=== PATIENT | male | born 1960 | race Caucasian/White ===

== ENCOUNTER → 2016-07-10 | Outpatient (CLI) | payer BC | LOC: KOH-I 15:34 | DX: J45.901 Unspecified asthma with (acute) exacerbation (principal) | CPT/HCPCS: 71020 ==

== ENCOUNTER 2016-07-29 16:58 | Emergency (ER) | payer BC ==
[2016-07-29 19:53] LABS: HEMOGLOBIN 14.6 gm/dl (14.0-17.5); RED BLOOD COUNT 4.67 M/UL (4.20-5.50); WHITE BLOOD COUNT 12.5 K/UL (4.5-11.0)
[2016-07-29 20:15] LABS: BUN/CREATININE RATIO 14 (0-10)
== END 2016-07-29 23:00 | disposition home or self-care (01) ==
LOC: ER1 16:58
PROVIDERS: Emergency Medicine
DX: M54.12 Radiculopathy, cervical region (principal); Z88.0 Allergy status to penicillin
CPT/HCPCS: 36415; 71020; 72125; 80053; 82550; 82553; 83874; 84484; 85025; 93005; 96372; 99284; J1885; J2930

== ENCOUNTER 2020-07-27 20:58 | Emergency (ER) | payer BC ==
[~2020-07-27 20:58] MED LIST: ADVAIR 250-501 EACH INH; CIALIS5 MG PO; CLEOCIN HCL300 MG PO; FLONASE 0.05% N16 GM; IBU800 MG PO; IBUPROFEN600 MG PO; KLONOPIN0.5 MG PO; NORCO 5-325 TA1 EACH PO; PROSCAR 5 MG TAB5 MG PO; PROTONIX40 MG PO; SINGULAIR10 MG PO; ZANAFLEX 4 MG TA4 MG PO; ZOLOFT100 MG PO
[2020-07-27] MEDS ORDERED: PERCOCET 5/325 T1 EA PO (22:55)
[2020-07-27] MEDS ORDERED: DOXYCYCLINE HY100 M2 PO (23:15)
== END 2020-07-27 23:33 | disposition home or self-care (01) ==
LOC: ER1 20:58
PROVIDERS: Family Medicine
DX: M54.9 Dorsalgia, unspecified (principal)
CPT/HCPCS: 86618; 96372; 99283; J1885

== ENCOUNTER 2021-04-06 11:39 | Inpatient (IN) | payer BC ==
[~2021-04-06] VITALS: Ht 177.8 cm; Wt 101.6 kg
[~2021-04-06 11:39] MED LIST changes: +DOXYCYCLINE HY100 M2 PO; -FLONASE 0.05% N16 GM; +FLONASE ALLER15.8 ML; +PERCOCET 5/325 T1 EA PO
[2021-04-06 12:16] LABS: HEMOGLOBIN 14.7 gm/dl (14.0-17.5); RED BLOOD COUNT 4.82 M/UL (4.20-5.50); WHITE BLOOD COUNT 8.2 K/UL (4.5-11.0)
[2021-04-06 13:01] LABS: BUN/CREATININE RATIO 16 (0-10)
[2021-04-06] MEDS ORDERED: ALBUTEROL2.5 MG/3 M NEB (17:10)
[2021-04-06] MEDS ORDERED: PROAIR DIGIHAL90 MCG INH (17:10)
[2021-04-06] MEDS ORDERED: BENZONATATE200 MG PO (17:11)
[2021-04-06] MEDS ORDERED: DEXAMETHASONE6 MG PO (17:11)
[2021-04-06] MEDS ORDERED: ASPIRIN EC81 MG PO (17:12)
[2021-04-06] MEDS ORDERED: ASCORBIC ACID500 MG PO (17:12)
[2021-04-06] MEDS ORDERED: VITAMIN D325 MCG PO (17:12)
[2021-04-07 04:42] LABS: WHITE BLOOD COUNT 7.9 K/UL (4.5-11.0)
[2021-04-07 04:52] LABS: RED BLOOD COUNT 4.29 M/UL (4.20-5.50)
[2021-04-07 04:53] LABS: HEMOGLOBIN 12.7 gm/dl (14.0-17.5)
[2021-04-07 05:11] LABS: BUN/CREATININE RATIO 16 (0-10)
[2021-04-08 05:43] LABS: HEMOGLOBIN 13.1 gm/dl (14.0-17.5); RED BLOOD COUNT 4.39 M/UL (4.20-5.50); WHITE BLOOD COUNT 8.9 K/UL (4.5-11.0)
[2021-04-08 06:10] LABS: BUN/CREATININE RATIO 16 (0-10)
[2021-04-09 05:25] LABS: HEMOGLOBIN 13.2 gm/dl (14.0-17.5); RED BLOOD COUNT 4.43 M/UL (4.20-5.50)
[2021-04-09 06:10] LABS: BUN/CREATININE RATIO 18 (0-10)
[2021-04-09] MEDS ORDERED: DECADRON6 MG PO (17:19)
[2021-04-09] MEDS ORDERED: KLOR-CON 1010 MEQ PO (17:19)
[2021-04-09] MEDS ORDERED: IPRAT-ALBUT 0.5-3 ML NEB (17:19)
[2021-04-09] MEDS ORDERED: HUMIBID LA TAB600 MG PO (17:19)
[2021-04-09] MEDS ORDERED: DOXYCYCLINE HY100 MG PO (17:25)
== END 2021-04-09 20:27 | disposition home or self-care (01) | DRG 177 ==
LOC: ER1 11:39 → CDU 16:26 → M/S 16:26 → 3 EAST 22:30 → M/S 04-07 23:50
PROVIDERS: Emergency Medicine; ADMIT Family Medicine
PROC: 8E0ZXY6 Isolation (ICD-10-PCS; principal; 2021-04-06)
PROC: 3E0333Z Introduction of Anti-inflammatory into Peripheral Vein, Percutaneous Approach (ICD-10-PCS; 2021-04-06)
PROC: XW033E5 Introduction of Remdesivir Anti-infective into Peripheral Vein, Percutaneous Approach, New Technology Group 5 (ICD-10-PCS; 2021-04-06)
DX: U07.1 COVID-19 (principal); J96.01 Acute respiratory failure with hypoxia; J12.82 Pneumonia due to coronavirus disease 2019; J18.9 Pneumonia, unspecified organism; J45.909 Unspecified asthma, uncomplicated; M51.36 Other intervertebral disc degeneration, lumbar region; F41.9 Anxiety disorder, unspecified; K21.9 Gastro-esophageal reflux disease without esophagitis; E87.6 Hypokalemia; I10 Essential (primary) hypertension; I45.10 Unspecified right bundle-branch block; E66.9 Obesity, unspecified; Z83.3 Family history of diabetes mellitus; Z83.6 Family history of other diseases of the respiratory system; Z82.49 Family history of ischemic heart disease and other diseases of the circulatory system; Z88.0 Allergy status to penicillin; Z79.01 Long term (current) use of anticoagulants; Z79.82 Long term (current) use of aspirin; Z68.32 Body mass index [BMI] 32.0-32.9, adult
CPT/HCPCS: 36415; 36600; 71045; 80048; 80053; 82550; 82553; 82803; 83605; 83735; 83874; 83880; 84484; 85025; 85027; 85610; 85730; 87040; 93005; 94640; 94664; 94760; 96374; 96375; 96376; 99285; J0248; J1100; J1650; J2405; J7030; Q9967

== ENCOUNTER → 2021-04-26 | Outpatient (CLI) | payer BC ==
[~2021-04-26] MED LIST changes: +ALBUTEROL2.5 MG/3 M NEB; +ASCORBIC ACID500 MG PO; +ASPIRIN EC81 MG PO; +BENZONATATE200 MG PO; +DECADRON6 MG PO; +DEXAMETHASONE6 MG PO; +DOXYCYCLINE HY100 MG PO; +HUMIBID LA TAB600 MG PO; +IPRAT-ALBUT 0.5-3 ML NEB; +KLOR-CON 1010 MEQ PO; +PROAIR DIGIHAL90 MCG INH; +VITAMIN D325 MCG PO
== END ==
LOC: RAD 15:39
DX: U07.1 COVID-19 (principal); R05.9 Cough, unspecified
CPT/HCPCS: 71046

== ENCOUNTER → 2021-05-26 | Outpatient (CLI) | payer BC | LOC: RAD 14:10 | DX: J18.9 Pneumonia, unspecified organism (principal); R91.8 Other nonspecific abnormal finding of lung field | CPT/HCPCS: 71046 ==

== ENCOUNTER → 2021-05-30 | Outpatient (CLI) | payer BC | LOC: HEART 5 15:02 | DX: U07.1 COVID-19 (principal); J12.82 Pneumonia due to coronavirus disease 2019; J45.909 Unspecified asthma, uncomplicated; R94.2 Abnormal results of pulmonary function studies | CPT/HCPCS: 94060; 94729 ==

== ENCOUNTER → 2021-06-08 | Outpatient (CLI) | payer BC ==
[~2021-06-08] MED LIST changes: +CIPRO500 MG PO; +METRONIDAZOLE500 MG PO; +ONDANSETRON ODT4 MG SL; +TORADOL 10 MG T10 MG PO
== END ==
LOC: KOH-I 15:39
DX: J84.10 Pulmonary fibrosis, unspecified (principal); J43.9 Emphysema, unspecified
CPT/HCPCS: 71250

== ENCOUNTER 2021-06-11 17:39 | Emergency (ER) | payer BC ==
[~2021-06-11 17:39] MED LIST changes: -CIPRO500 MG PO; -METRONIDAZOLE500 MG PO; -ONDANSETRON ODT4 MG SL; -TORADOL 10 MG T10 MG PO
[2021-06-11 19:23] LABS: HEMOGLOBIN 14.3 gm/dl (14.0-17.5); RED BLOOD COUNT 4.73 M/UL (4.20-5.50); WHITE BLOOD COUNT 13.3 K/UL (4.5-11.0)
[2021-06-11 19:44] LABS: BUN/CREATININE RATIO 15 (0-10)
[2021-06-11] MEDS ORDERED: METRONIDAZOLE500 MG PO (22:42)
[2021-06-11] MEDS ORDERED: ONDANSETRON ODT4 MG SL (22:42)
[2021-06-11] MEDS ORDERED: CIPRO500 MG PO (22:42)
[2021-06-11] MEDS ORDERED: TORADOL 10 MG T10 MG PO (22:42)
== END 2021-06-11 22:54 | disposition home or self-care (01) ==
LOC: ER1 17:39
DX: K57.32 Diverticulitis of large intestine without perforation or abscess without bleeding (principal); K21.9 Gastro-esophageal reflux disease without esophagitis; Z88.0 Allergy status to penicillin
CPT/HCPCS: 80053; 81001; 83690; 85025; 96374; 99284; J1885; J7030; Q9967

== ENCOUNTER → 2021-11-07 | Outpatient (CLI) | payer BC ==
[~2021-11-07] MED LIST changes: +CIPRO500 MG PO; +METRONIDAZOLE500 MG PO; +ONDANSETRON ODT4 MG SL; +TORADOL 10 MG T10 MG PO
== END ==
LOC: ECHO 09:00
DX: R06.02 Shortness of breath (principal); I08.1 Rheumatic disorders of both mitral and tricuspid valves
CPT/HCPCS: ECHO; 93306